=== PATIENT | female | born 1940 | race Caucasian/White ===

== ENCOUNTER → 2016-12-17 | Outpatient (CLI) | payer MEDICARE ==
[~2016-12-17] MED LIST: ASCO10004 PO; CLOP75TA22 PO; PANT40TA3 PO; SIMV20TA3 PO
== END | disposition home or self-care (01) ==
LOC: SUSANVILLE 10:00
PROVIDERS: ATTEND Internal Medicine Cardiovascular Disease
DX: I08.1 Rheumatic disorders of both mitral and tricuspid valves (principal)
CPT/HCPCS: 93306